=== PATIENT | male | born 1955 | race Caucasian/White ===

== ENCOUNTER 2016-08-09 12:56 | Inpatient (IN) | payer OTHER ==
--- NOTE | ~2016-08-09 | PA ---
Unit #: [id number] #: [id number] Patient: DAVE REYES [id number] [place] [address] [id number] I MR#: [id number] NAME: DAVE REYES ROOM: P212 Age: 61 Sex: M Admission Date: 08/09/2016 : 1955 Date of Assessment: 08/10/2016 Attending Physician: Naveed Ruiz M.D. Admitting Physician: Naveed Ruiz M.D. Primary Care Physician: Generic Doctor Not In System PSYCHIATRIC ASSESSMENT IDENTIFYING INFORMATION The patient is a 61-year-old white male admitted to the [address] [place] [address] for alcohol detox. CHIEF COMPLAINT "Back on the bottle." INFORMANT(S) Patient, reliability is good. HISTORY OF PRESENT ILLNESS The patient is a 61-year-old white male admitted for alcohol detox. He has been drinking approximately fifth of hard liquor on a daily basis. He denies abuse of other psychoactive substances. He was last admitted to this facility in March of 2016 under similar circumstances. He did not comply with prescribed intensive outpatient treatment and states that he "went to a few meetings." He states that he maintains sobriety only for a week. The patient denies current suicidal or homicidal ideation and denies any psychotic symptoms. For more complete history of present illness, please refer to previously dictated notes. PAST PSYCHIATRIC HISTORY Reviewed, no changes. PAST MEDICAL HISTORY Reviewed, no changes. MEDICATIONS Zolpidem, penicillin, pantoprazole, lisinopril. ALLERGIES None. FAMILY HISTORY Reviewed, no changes. SOCIAL HISTORY Reviewed, no changes. MENTAL STATUS EXAMINATION Examination at this time reveals the patient to be a well-developed well-nourished white female appearing her stated age. He is in no apparent physical distress at the time of examination. He is awake, Unit #: [id number] #: [id number] Patient: DAVE REYES alert, and oriented in all spheres. His mood is mildly dysphoric, his affect congruent. Speech is generally well coherent. No gross deficits in memory or cognition noted. Intelligence is judged to be in the average range based on fund of knowledge. The patient is cooperative throughout the interview. He is currently denying suicidal or homicidal ideation or psychotic features. Judgment and insight appear to be reasonably intact. ASSETS AND LIABILITIES The patient's assets: Motivation for change. Liabilities: Lack of resources, poor compliance with treatment. DIAGNOSTIC IMPRESSION 1. Alcohol use disorder. 2. Gastroesophageal reflux disease. 3. Hypertension. TREATMENT PLAN The patient remains hospitalized for safety and stabilization. Routine detoxification protocol has been initiated. The patient seems more open to possible initiation of the treatment in the intensive outpatient program at this point. ESTIMATED LENGTH OF STAY 3 to 5 days. The followup will take place through the auspices of the intensive outpatient program provided by this facility. Dictated by... Naveed Ruiz M.D. Jose L TD: 08/10/2016 13:31 JOB #: [id number] PSYCHIATRIC ASSESSMENT Page 1 of 1 X Naveed Ruiz MD X PSYCHIATRIC ASSESSMENT
--- NOTE | ~2016-08-09 | HP ---
Unit #: [id number] #: [id number] Patient: RAJ REYES [id number] [place] [address] [id number] MR#: [id number] NAME: RAJ REYES ROOM: P212 Age: 61 Sex: M Admission Date: 08/09/2016 : 1955 Attending Physician: Naveed Ruiz M.D. Admitting Physician: Naveed Ruiz M.D. Primary Care Physician: Generic Doctor Not In System HISTORY AND PHYSICAL HISTORY OF PRESENT ILLNESS Raj is a 61-year-old admitted to [address] [place] [address] because of his abuse of alcohol. He is detoxing. He has had other admissions to this facility for the same. PAST MEDICAL HISTORY 1. Long history of alcohol abuse. 2. High blood pressure. PAST SURGICAL HISTORY Low back. ALLERGIES No known drug allergies. SOCIAL HISTORY Smokes greater than one pack per day, drinks at least a fifth of liquor on a daily basis, and denies illicit drug use. FAMILY HISTORY Medically noncontributory. REVIEW OF SYSTEMS CONSTITUTIONAL: No fever or chills. HEENT: Denies any sore throat, ear pain or runny nose. CARDIOVASCULAR: Denies chest pain, irregular heart rhythm or palpitations. CHEST: Denies shortness of breath or cough. No hemoptysis. GASTROINTESTINAL: Denies nausea, vomiting, diarrhea or chronic constipation. ENDOCRINE: Denies history of increased thirst or urination. No recent significant weight loss or gain. GENITOURINARY: Denies dysuria, frequency, or hematuria. SKIN: Denies any rashes. HEMATOLOGIC: Denies history of increased bleeding or bruising. MUSCULOSKELETAL: Denies any hot, swollen joints. No generalized muscle pain. NEUROLOGIC: Denies problems with vision or speech. No frequent, severe headaches. No numbness, tingling or weakness in any extremities. Denies loss of bladder or bowel control. CURRENT MEDICATIONS 1. Detox protocol. 2. Zestril 20 mg every day. Unit #: [id number] #: [id number] Patient: RAJ REYES PHYSICAL EXAMINATION GENERAL: Alert, well nourished, and in no apparent distress. VITAL SIGNS: Blood pressure 105/66, heart rate 80, respirations 16, temperature 98.6, weight 205 pounds, and height 6 feet, 1 inch. SKIN: Warm and dry without rash or lesion. HEENT: Normocephalic. TMs not viewed. Oral and nasal passages clear. Conjunctivae clear. PERRLA. EOMs intact. NECK: Supple without lymphadenopathy or thyromegaly. HEART: Regular rate and rhythm without murmur. LUNGS: Clear. ABDOMEN: Soft, nontender. : Not done. EXTREMITIES: No evidence of cyanosis, clubbing or edema. Moves all without focal deficit. NEUROLOGICAL: Grossly within normal limits. Cranial Nerves: II: Visual pedraza are intact. III, IV AND : Extraocular movements are intact. Pupils are equal, round and reactive to light. V: Facial sensation is grossly normal. VII: Facial movements and expression are normal. VIII: Auditory acuity grossly intact. IX, X: Uvula is midline. Phonation is normal. XI: Patient shrugs shoulders and turns head normally. XII: Tongue protrudes in the midline. Sensory and Motor Function: Sensory and motor sensation is grossly normal. Motor: moves all extremities well. Coordination: Gait is normal. Deep Tendon Reflexes: Intact. IMPRESSION Psychiatric admission. RECOMMENDATIONS PSYCHIATRIC: Per psychiatrist. MEDICAL: I see no contraindication to participating in facility's activities. MEDICAL PROGNOSIS Good. MEDICAL CONDITION Stable. Dictated by... Bárbara NeelyAGilberto. for Hortencia Saxena/yoshi TD: 08/10/2016 12:00 JOB #: [id number] Unit #: [id number] #: [id number] Patient: RAJ REYES HISTORY AND PHYSICAL Page 1 of 1 X Sabrina Nunes HISTORY AND PHYSICAL
--- NOTE | ~2016-08-09 | PN ---
Unit #: [id number] #: [id number] Patient: DAVE REYES [id number] [facility] [address] [place] [address] [id number] MR#: [id number] NAME: DAVE REYES ROOM: P212 Age: 61 Sex: M Admission Date: 08/09/2016 : 1955 Attending Physician: Naveed Ruiz M.D. Admitting Physician: Naveed Ruiz M.D. Primary Care Physician: [place] Doctor Not In System [facility] PROGRESS NOTES DATE 08/12/2016 DISCUSSION The patient offers no new complaints today, and his detox is going uneventfully. Unfortunately, it appears as though the patient will not be complying with intensive outpatient program following his discharge citing his plan to return to work, and my fear is that his risk of relapses will be high should he not follow up in a more aggressive fashion. Dictated by... Naveed Ruiz M.D. CB/bzg TD: 08/12/2016 14:59 JOB #: [id number] [facility] PROGRESS NOTES Page 1 of 1 X Naveed Ruiz MD X PROGRESS NOTE
--- NOTE | ~2016-08-09 | PN ---
Unit #: [id number] #: [id number] Patient: DAVE REYES [id number] [facility] [address] [place] [address] [id number] I MR#: [id number] NAME: DAVE REYES ROOM: P212 Age: 61 Sex: M Admission Date: 08/09/2016 : 1955 Attending Physician: Naveed Ruiz M.D. Admitting Physician: Naveed Ruiz M.D. Primary Care Physician: [place] Doctor Not In System [facility] PROGRESS NOTES DATE 08/11/2016 DISCUSSION The patient's detox continues uneventfully. He is generally pleasant spirits, and his participation within the therapeutic milieu has improved somewhat. I have completed his FMLA works and anticipates Monday discharge. Dictated by... Naveed Ruiz M.D. CB/cara TD: 08/11/2016 14:05 JOB #: [id number] [facility] WITH [facility] PROGRESS NOTES Page 1 of 1 X Naveed Ruiz MD PROGRESS NOTE
--- NOTE | ~2016-08-09 | DS ---
Unit #: [id number] #: [id number] Patient: DAVE REYES [id number] [facility] [address] [place] [address] [id number] I MR#: [id number] NAME: DAVE REYES. ROOM: P212 Age: 61 Sex: M Admission Date: 08/09/2016 : 1955 Discharge Date: 08/13/2016 Attending Physician: Naveed Ruiz M.D. Primary Care Physician: Generic Doctor Not In System DISCHARGE SUMMARY REASON FOR ADMISSION The patient is a 61-year-old white male, admitted for alcohol detox hospital HOSPITAL COURSE The patient was admitted to the [address] [place] [address] unit and placed on routine detoxification protocol for alcohol. His stay in the hospital was a fairly uneventful one. He did request trazodone for sleep, but otherwise his detox went smoothly. He requested discharge on 08/13/2016 and stated that he would attend the chemical dependency intensive outpatient program, it was so ordered. FINAL DIAGNOSES Alcohol use disorder, gastroesophageal reflux disease, hypertension. DISPOSITION ON DISCHARGE The patient is discharged on the following medications; Protonix 40 mg daily for hypertension, Zestril 20 mg daily for hypertension. DISCHARGE INSTRUCTIONS No dietary or physical restrictions were placed upon the patient at the time of discharge. FOLLOWUP Followup will take place through the auspices of the chemical dependence intensive outpatient program provided by this facility. PROGNOSIS The patient's prognosis is considered fair. Dictated by... Naveed Ruiz M.D. CB/kendra TD: 08/14/2016 00:58 JOB #: [id number] Unit #: [id number] #: [id number] Patient: DAVE REYES DISCHARGE SUMMARY Page 1 of 1 X Naveed Ruiz MD X DISCHARGE SUMMARY
[2016-08-10 10:07] LABS: ALBUMIN SERUM 3.6 g/dL (3.5-5.0); BASOPHIL% 0.3 % (0-2.5); BILIRUBIN,TOTAL 1.9 mg/dL (0.2-2.0); BUN/CREATININE RATIO 25.55; CALCIUM SERUM 9.4 mg/dL (8.4-10.2); CREATININE SERUM 0.9 mg/dL (0.6-1.4); EOSINOPHIL# 0.1 X10e3 (0-0.7); EOSINOPHIL% 2.3 % (0.0-7.0); GLOM FILT RATE Estimated 92.5 mL/min (>60); HEMATOCRIT 40.7 % (38.0-50.0); HEMOGLOBIN 13.8 gm/dL (13.0-16.0); LYMPHOCYTE# 1.2 X10e3 (1.0-3.5); LYMPHOCYTE% 27.7 % (17.0-45.0); MEAN CELL VOLUME 102.8 FL (83-96); MEAN CORPUSCULAR HEMOGLOBIN 34.8 PG (28-34); MEAN CORPUSCULAR HGB CONC 33.8 g/dL (30-36); MEAN PLATELET VOLUME 8.5 FL (6.5-11.5); MONOCYTE# 0.4 X10e3 (0-1.0); MONOCYTE% 9.9 % (3.0-12.0); NEUTROPHIL# 2.5 X10e3 (1.5-7.1); NEUTROPHIL% 59.8 % (40-75); POTASSIUM 3.9 mmol/L (3.5-5.1); PROTEIN TOTAL SERUM 6.5 g/dL (6.0-8.3); RED BLOOD COUNT 3.96 X10e (3.90-5.60); RED CELL DISTRIBUTION WIDTH 12.9 % (11.0-15.5); WHITE BLOOD COUNT 4.2 X10e3 (4.0-10.5)
[2016-08-10 10:37] LABS: PLATELET COUNT 93 X10e3 (140-420)
[2016-08-10 10:38] LABS: DIFF IND YES
[2016-08-10 10:44] LABS: PLATELET ESTIMATE DECREASED (NORMAL)
[2016-08-10 10:45] LABS: ANISOCYTOSIS SL
[2016-08-10 12:34] LABS: URINE APPEARANCE CLEAR; URINE BILIRUBIN NEG (NEG); URINE BLOOD NEG (NEG); URINE COLOR DK YELLOW; URINE GLUCOSE NEG (NEG); URINE KETONE NEG (NEG); URINE LEUKOCYTE ESTERASE NEG (NEG); URINE NITRATE NEG (NEG); URINE PH 6.5 (5-8); URINE PROTEIN NEG (NEG); URINE SPECIFIC GRAVITY 1.018 (1.003-1.035); URINE UROBILINOGEN 0.2 MG/DL (NEG)
[2016-08-10 13:05] LABS: AMPHETAMINE NEG (NEG); BARBITURATES NEG (NEG); BENZODIAZEPINES POS (NEG); COCAINE NEG (NEG); MARIJUANA NEG (NEG); OPIATES NEG (NEG); TRICYCLIC ANTIDEPRESSANTS NEG (NEG); U METHADONE NEG (NEG)
== END 2016-08-13 13:40 | DRG 897 ==
LOC: P2S 12:56
PROVIDERS: Specialist
PROC: HZ2ZZZZ Detoxification Services for Substance Abuse Treatment (ICD-10-PCS; principal; 2016-08-09)
DX: F10.20 Alcohol dependence, uncomplicated (principal); I10 Essential (primary) hypertension; K21.9 Gastro-esophageal reflux disease without esophagitis; F17.210 Nicotine dependence, cigarettes, uncomplicated
CPT/HCPCS: 80053; 80307; 81003; 82947; 85025; 86592